=== PATIENT | female | born 1995 | race Caucasian/White ===

== ENCOUNTER 2017-08-11 14:49 | Emergency (ER) | payer BC ==
[2017-08-11 15:51] LABS: Bilirubin Negative (Negative); Blood, Urine Large (Negative); Glucose, Urine (Dipstick) Negative (Negative); Ketone, Urine 15 mg/dL (Negative); Nitrite Negative (Negative); Protein, Urine (Dipstick) Negative (Neg-Trace)
[2017-08-11 15:52] LABS: Bacteria/HPF 3+ HPF (None Seen); WBC/HPF 21-50 HPF (0-3)
[2017-08-11 16:06] LABS: #Lymphocytes 1.5 thou/uL (1.20-3.40); #Monocytes 0.8 thou/uL (0.11-0.59); #Neutrophils 8.4 thou/uL (1.40-6.50); %Basophils 0.4 % (0.0-1.0); %Lymphocytes 14.3 % (21.0-51.0); %Monocytes 7.5 % (0.0-10.0); Hematocrit 32.1 % (36.0-47.0); Mean Platelet Volume 9.7 fL (7.4-10.4); Red Blood Cell (RBC) Count 3.84 mill/uL (4.20-5.40); White Blood Cell (WBC) Count 10.8 thou/uL (4.8-10.8)
[2017-08-11 16:13] LABS: Lactic Acid - Sepsis 0.8 mmol/L (0.5-2.2)
[2017-08-11 16:18] LABS: ALT (SGPT) 14 U/L (8-55); AST (SGOT) 13 U/L (5-34); Alkaline Phosphatase 74 U/L (40-150); Anion Gap 16 mmol/L (10-20); BUN (Urea Nitrogen) 6 mg/dL (7.0-18.7); Bilirubin, Total 1.7 mg/dL (0.2-1.2); Calc. Creatinine Clearance 0 mL/min (70-130); Calcium 9.3 mg/dL (7.8-10.44); Carbon Dioxide 22 mmol/L (22-29); Chloride 103 mmol/L (98-107); Estimated GFR-MDRD Greater than 90; Globulin 3.2 g/dL (2.4-3.5); Protein, Total 7.4 g/dL (6.0-8.3)
--- NOTE | 2017-08-11 16:59 | ULT ---
PELVIC ULTRASOUND 08/11/17 HISTORY: Fever. Positive HCG. Endometrial thickening. Multiple longitudinal and transverse images of the pelvis is obtained using a multihertz curvilinear transabdominal as well as multihertz endovaginal transducers. Real time, color flow, and spectral wav eform doppler analysis used to evaluate the pelvis. The uterus measures 7.9 x 6.8 x 4.0 cm. The endometrium has a double wall thickness of approximately 1.4 cm. No evidence of a viable intrauterine is seen. The right ovary is not visualized. The left ovary is visualized measuring 2.3 x 2.9 cm. There is a 1.8 cm cyst or cystic lesion in the l eft ovary. No evidence of free pelvic fluid seen. IMPRESSION: 1. Nonvisualization of the right ovary. 2. Left ovarian cyst or cystic lesion. No evidence of a viable intrauterine seen. Yasir elate with followup HCG levels and followup sonography if clinically indicated. POS: [facility]
[2017-08-11] MEDS ORDERED: Sodium Chloride 0.9% 100 ML ONE (17:24)
[2017-08-11] MEDS ORDERED: cefTRIAXone\\ROCEPHIN 1 GM VIAL ONE (17:24)
== END 2017-08-11 17:57 | disposition home or self-care (01) ==
LOC: SCSER 14:49
DX: O23.12 Infections of bladder in pregnancy, second trimester (principal); O99.012 Anemia complicating pregnancy, second trimester; O99.282 Endocrine, nutritional and metabolic diseases complicating pregnancy, second trimester; E80.6 Other disorders of bilirubin metabolism; Z87.59 Personal history of other complications of pregnancy, childbirth and the puerperium
CPT/HCPCS: 76856; 80053; 81003; 81015; 83605; 84702; 85025; 87040; 96361; 96365; J0696; J7050

== ENCOUNTER 2019-06-02 10:20 | Day surgery (SDC) | payer OTHER ==
[2019-06-01 14:34] VITALS: BMI 27.9
[2019-06-02] MEDS ORDERED: Fentanyl 100 MCG/2 ML VIAL ONE (10:42)
[2019-06-02] MEDS ORDERED: Doxycycline 100 MG CAP PO SCH ×2 (11:15→13:30)
[2019-06-02 11:28] LABS: #Lymphocytes 2.5 thou/uL (1.20-3.40); #Monocytes 0.8 thou/uL (0.11-0.59); #Neutrophils 4.6 thou/uL (1.40-6.50); %Basophils 0.6 % (0.0-1.0); %Eosinophils 0.5 % (0.0-10.0); %Lymphocytes 31.6 % (21.0-51.0); %Monocytes 9.4 % (0.0-10.0); %Neutrophils 57.9 % (42.0-75.0); Hemoglobin 12.3 g/dL (12.0-16.0); Mean Corpuscular HGB CONC 34.5 g/dL (32.0-36.0); Mean Corpuscular Hemoglobin 29.8 pg (27.0-31.0); Mean Corpuscular Volume 86.5 fL (78.0-98.0); Mean Platelet Volume 9.4 fL (7.4-10.4); Platelet Count 182 thou/uL (130-400); RBC Distribution Width 11.9 % (11.5-14.5); Red Blood Cell (RBC) Count 4.13 mill/uL (4.20-5.40)
[2019-06-02] MEDS ORDERED: Midazolam HCl 2 mg/2 ml Vial ONE (11:50)
[2019-06-02] MEDS ORDERED: Methylergonovine 0.2 MG/ML VIAL ONE (12:28)
[2019-06-02] MEDS ORDERED: Ketorolac Tromethamine 30 MG/ML VIAL ONE (13:24)
[2019-06-02] MEDS ORDERED: Meperidine HCl/PF 25 MG/ML VIAL ONE (13:26)
--- NOTE | 2019-06-03 08:33 | OP ---
DATE OF PROCEDURE: 06/02/2019 PREOPERATIVE DIAGNOSES: 1. Six-week dichorionic/diamniotic gestation. 2. Missed of both fetuses. 3. Recurrent loss. POSTOPERATIVE DIAGNOSES: 1. Six-week dichorionic/diamniotic gestation. 2. Missed of both fetuses. 3. Recurrent loss. 4. 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 PROCEDURE PERFORMED: Suction dilation and curettage under ultrasound guidance. SURGEON: Kaitlin Liao DO INSURANCE CODER: Tory Bassett MD ESTIMATED BLOOD LOSS: 400 mL. COMPLICATIONS: None. ANESTHESIA: General. INDICATIONS FOR PROCEDURE: Ms. Bucky Pedroza is a 24-year-old, G3, P0, who was diagnosed with a missed of both twins of a dichorionic/diamniotic twin gestation at approximately 6 weeks. The patient was counseled on options and elected to have surgical management with dilation and curettage and also desired collection for genetic testing of the products of conception. PROCEDURE IN DETAIL: Preoperatively, the patient was given doxycycline for prophylaxis. She was then brought to the operating room and placed under general anesthesia. She was placed in dorsal lithotomy position using Ras stirrups. She was prepped and draped in a sterile fashion. An official time-out was performed. A single-sided speculum was placed in the vagina and the anterior aspect of the cervix was grasped using single-tooth tenaculum. The cervix was sequentially dilated. The uterine sound was inserted approximately 10 cm. The suction curettage was then inserted removing products of conception. The suction curettage required multiple passes and a sharp curettage was then performed and there was noted to still have smooth texture portions of the uterus. An ultrasound was also performed at the bedside and the curettage was performed under ultrasound guidance. There was noted to possibly be a septum dividing the uterine cavity where a possible bicornuate uterus was difficult to tell with bedside sonography. There were additional products of conception within the right aspect of the uterus that required additional suction and curettage. Dr. Bassett was assisting by helping with ultrasound guidance while I performed dilation and curettage. The sonogram was performed vaginally after the completion of the procedure. There was no evidence of gestational sac or pole seen on the imaging. There was small amount of blood or clot that was within the endometrial canal; however, these were unable to be completely removed just due to the angle and difficulty with the uterine anomaly, but there were no signs of products of conception still remaining. There was minimal bleeding. Therefore, the procedure was completed. The instruments were removed from the vagina. The tenaculum site was hemostatic. The patient was placed back in supine position. She was extubated without difficulty. All counts were correct x2. The patient was transferred to the PACU. She was given RhoGAM for Rh-negative and also given doxycycline again postoperatively. She will follow up in clinic in 2 weeks and the details of the surgery were explained to her family. Job ID: [id number] [facility]
--- NOTE | 2019-06-03 13:43 | OP ---
DATE OF PROCEDURE: 06/02/2019 I was present to assist the suction D and C for Ms. Bucky Pedroza with Dr. Kaitlin Liao, please see her note for full details. Job ID: [id number]
== END 2019-06-02 15:29 | disposition home or self-care (01) ==
LOC: SDC 10:20
PROVIDERS: ATTEND Obstetrics & Gynecology
PROC: 10D17ZZ Extraction of Products of Conception, Retained, Via Natural or Artificial Opening (ICD-10-PCS; principal; 2019-06-02)
DX: O02.1 Missed abortion (principal)
CPT/HCPCS: 36415; 85025; 86850; 86900; 86901; 88305; 90384; 96372; J1885; J2175; J2210; J2250; J3010